=== PATIENT | male | born 1975 | race Caucasian/White ===

== ENCOUNTER → 2024-07-02 09:41 | Outpatient (CLI) | payer OTHER, MEDICAID, SELFPAY ==
--- NOTE | 2024-07-02 09:43 | DI.RAD.S_ITS ---
PROCEDURE: XR HUMERUS RT 2V INDICATIONS: fall onto arm/shoulder 4 days ago TECHNIQUE: 2 views of the humerus were acquired. COMPARISON: None. FINDINGS: Bones: No dislocations. No suspicious bony lesions. There is at least 1 vertically oriented fracture line extending from the humeral neck cephalad potentially to the articular surface. Additional subtle fracture planes likely are present in similar areas more medially. Soft tissues: No suspicious soft tissue calcifications. IMPRESSION: Definite acute but nondisplaced humeral head and neck vertically oriented fracture or fractures as noted. Dictated by: Faisal Anderson M.D. on 07/02/2024 at 10:40 Approved by: Faisal Anderson M.D. on 07/02/2024 at 10:41
--- NOTE | 2024-07-02 09:43 | DI.RAD.S_ITS ---
PROCEDURE: XR SHOULDER RT MIN 2V INDICATIONS: fall onto arm/shoulder 4 days ago TECHNIQUE: 3 views of the shoulder were acquired. COMPARISON: None. FINDINGS: Bones: No previously un identified fractures or dislocations. Vertically oriented nondisplaced fractures are seen through the humeral head and neck extending towards if not into the superior humeral articular surface. A fracture at the base of the greater tuberosity also can be seen on the external rotation view. No suspicious bony lesions. Visualized ribs appear intact. Soft tissues: No suspicious soft tissue calcifications. IMPRESSION: Fractures involving the humeral head and neck extending likely to the articular surface but currently nondisplaced. Dictated by: Faisal Anderson M.D. on 07/02/2024 at 10:42 Approved by: Faisal Anderson M.D. on 07/02/2024 at 10:43
== END ==
LOC: RAD 09:42
PROVIDERS: Referring Provider Physician Assistant; Visit Provider Physician Assistant
DX: S42.294A Other nondisplaced fracture of upper end of right humerus, initial encounter for closed fracture (principal); S42.214A Unspecified nondisplaced fracture of surgical neck of right humerus, initial encounter for closed fracture; S42.254A Nondisplaced fracture of greater tuberosity of right humerus, initial encounter for closed fracture; W19.XXXA Unspecified fall, initial encounter
CPT/HCPCS: 73030; 73060

== ENCOUNTER → 2024-07-08 15:02 | Outpatient (CLI) | payer OTHER, MEDICAID, SELFPAY ==
--- NOTE | 2024-07-08 15:06 | DI.CT.S_ITS ---
PROCEDURE: CT SHOULDER RIGHT WITHOUT CON INDICATIONS: multiple fracture humerus TECHNIQUE: Noncontrast 0.75 mm thick sections acquired from the acromioclavicular joint to the inferior scapula, with coronal and sagittal reformatting. COMPARISON: [facility], CR, XR HUMERUS RT 2V, 07/02/2024, 9:55. [facility], CR, XR SHOULDER RT MIN 2V, 07/02/2024, 9:55. FINDINGS: Image quality: Excellent. Bones: Mild acromioclavicular joint osteoarthritic changes are seen with joint space narrowing, and subchondral sclerosis. As seen on previous shoulder radiograph, there is a comminuted fracture involving right greater tuberosity with minimal lateral displacement and up to 3 mm diastasis at fracture site. No other fracture or dislocation is seen. Mild glenohumeral joint osteoarthritic changes are seen. No suspicious bony lesions. The visualized right upper to mid ribs are intact. Soft tissues: There is no gross full-thickness rotator cuff tendon rupture. No significant rotator cuff muscle atrophy is seen on sagittal images. Moderate joint effusion is seen, no calcified intra-articular loose bodies. No soft tissue mass. The visualized right lung field is clear. IMPRESSION: 1. Comminuted and minimally displaced fracture involving greater tuberosity of right humerus as above. No other fracture or dislocation. 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 No suspicious bony lesions. 2. No full-thickness rotator cuff tendon rupture. No significant rotator cuff muscle atrophy. No abnormal soft tissue calcifications. Moderate joint effusion, no loose bodies. Dictated by: Brody Crawford M.D. on 07/08/2024 at 16:26 Approved by: Brody Crawford M.D. on 07/08/2024 at 16:34
== END ==
PROVIDERS: Referring Provider Physician Assistant; Visit Provider Physician Assistant
DX: S42.254A Nondisplaced fracture of greater tuberosity of right humerus, initial encounter for closed fracture (principal); M19.011 Primary osteoarthritis, right shoulder; M25.411 Effusion, right shoulder; X58.XXXA Exposure to other specified factors, initial encounter
CPT/HCPCS: 73200